=== PATIENT | female | born 1980 | race Caucasian/White ===

== ENCOUNTER 2018-11-20 12:18 | Emergency (ER) | payer OTHER ==
[2018-11-20 13:28] VITALS: BP 119/88
--- NOTE | 2018-11-20 13:32 | UC ---
Hand/Wrist HPI - HPI Summary HPI Summary: 38 y/o female presents to the urgent care c/o Rt wrist pain s/p injury while trying to prevent from falling from a chair. Pt reports she was going to sit and she felt there was no chair behind her and put her Rt hand first. Pt states RT wrist pain is sharp and worse w/ movement 8/10 w/o any radiation. At rest is 4/10. She took Motrin 800mg PO This morning around 1000AM which helped. Pt states pain is worse whe she has to bend her wrist. Pt denies numbness or tingling sensation over the Rt wrist or hand, SOB, chest pain, abdominal pain, N /V/D. - History Of Current Complaint Chief Complaint: UCUpperExtremity Stated Complaint: RIGHT WRIST INJURY Time Seen by Provider: 11/20/18 13:18 Hx Obtained From: Patient ?: No - Hx of Hysterectomy in 2012 Onset/Duration: Sudden Onset, Lasting Days - 1 day, Still Present, Worse Since - this morning Severity Initially: Moderate Severity Currently: Moderate Pain Intensity: 8 - w/ movement Pain Scale Used: 0-10 Numeric Character Of Pain: Sharp Aggravating Factor(s): Movement, Abduction, Twisting, Pulling Alleviating Factor(s): Rest, OTC Meds - Motrin 800mg taken at 1000AM Associated Signs And Symptoms: Positive: Swelling - mild. Negative: Bruising, Fever, Weakness, Numbness/Tingling Related History: Dominant Hand Right - Allergies/Home Medications Allergies/Adverse Reactions: Allergies Allergy/AdvReac Type Severity Reaction Status Date / Time Penicillins Allergy Rash And Verified 11/20/18 13:19 Itching Home Medications: Home Medications Erenumab-Aooe [Aimovig Autoinjector] 1 syr MONTHLY 11/20/18 [History Confirmed 11/20/18] Prochlorperazine SUPP* [Compazine Supp*] 1 supp Q12HR PRN 11/20/18 [History Confirmed 11/20/18] Rizatriptan Benzoate [Rizatriptan] 1 tab BID PRN 11/20/18 [History Confirmed ] carBAMazepine ER TAB(*) [Tegretol Xr TAB(*)] 1 tab BID 11/20/18 [History Confirmed 11/20/18] PMH/Surg Hx/FS Hx/Imm Hx Previously Healthy: Yes Neurological History: Migraine Other Neurological History: Trigeminal Neuralgia Other History Of: Comment Only: Anticoagulant Therapy - factor 5 liden - Surgical History Surgical History: Yes Surgery Procedure, Year, and Place: 3 , gall bladder, batholin gland remove, ovarian cycst removed T&A, TUBES IN EARS, HYSTERECTOMY, LT OVARY REMOVED, CYSTS REMOVED FROM OVARIES, SINUS SURGERY - Family History Known Family History: Positive: None - Pt denies FMHX - Social History Occupation: Employed Full-time Lives: With Family Alcohol Use: None Substance Use Type: None Smoking Status (MU): Former Smoker Type: Joseigaremarie Review of Systems All Other Systems Reviewed And Are Negative: Yes Constitutional: Positive: Negative Skin: Positive: Negative Eyes: Positive: Negative ENT: Positive: Negative Respiratory: Positive: Negative Cardiovascular: Positive: Negative Gastrointestinal: Positive: Negative Genitourinary: Positive: Negative Motor: Positive: Negative Neurovascular: Positive: Negative Musculoskeletal: Positive: Decreased ROM - RT wrist, Other: - Rt wrist pain s/p fall Neurological: Positive: Negative Psychological: Positive: Negative Is Patient Immunocompromised?: No Physical Exam - Summary Physical Exam Summary: Vital Signs Reviewed: Yes General: Well-Appearing, No Pain Distress, Well-Nourished obese female w/o any apparent pain distress Eyes: Positive: Conjunctiva Clear - PERRLA, EOMI ENT: Positive: Normal ENT inspection, Hearing grossly normal, Pharynx normal, TMs normal, Uvula midline Neck: Positive: Supple, Nontender, No Lymphadenopathy Respiratory: Positive: Chest non-tender, Lungs clear, Normal breath sounds, No respiratory distress Cardiovascular: Positive: RRR, No Murmur, Pulses Normal, Brisk Capillary Refill Abdomen Description: Positive: Nontender, No Organomegaly, Soft. Negative: CVA Tenderness (R), CVA Tenderness (L) Bowel Sounds: Positive: Present Musculoskeletal: Positive: Strength Intact, Other: Neurological Exam: Normal Musculoskeletal: Positive: Wrist: the R wrist is without obvious asymmetry or deformity when compared to the L wrist. No surface trauma, open wounds, swelling , or obvious deformity. No overlying erythema or warmth. No bony crepitus. Point tenderness over the thenar eminence and ventral side of wrist. No scaphoid fullness or tenderness to direct palpation or axial load. Decreased ROM due to pain. Motor/sensory function of ulnar, radial, median nerves intact. Ulnar and radial pulses intact. Phalen's and Tinel's test unable to perform due to pain Psychological Exam: Normal Skin Exam: Normal Triage Information Reviewed: Yes Vital Signs: Initial Vital Signs Temp 97.8 F 11/20/18 13:24 Pulse 69 11/20/18 13:24 Resp 16 11/20/18 13:24 BP 119/88 11/20/18 13:24 Pulse Ox 100 11/20/18 13:24 Hand/Wrist Course/Dx - Course Course Of Treatment: 38 y/o female presents to the urgent care c/o Rt wrist pain s/p injury while trying to prevent from falling from a chair. Pt reports she was going to sit and she felt there was no chair behind her and put her Rt hand first. Pt states RT wrist pain is sharp and worse w/ movement 8/10 w/o any radiation. At rest is 4/10. She took Motrin 800mg PO This morning around 1000AM which helped. Pt states pain is worse when she has to bend her wrist. Pt denies numbness or tingling sensation over the Rt wrist or hand, SOB, chest pain, abdominal pain, N /V/D. Hx obtained. RT wrist X-ray ordered. Impression: There was no fracture, dislocation, soft tissue swelling or FB noted as per radiologist. Probably a Rt wrist sprain. Pt s wrist immobilized with thumb spica splint. Advised RICE: Rest, Ice, elevation , advised to continue w/ Motrin PO. There was no neurovascular compromise after splint application placed by nurse; the splint was in good alignment and the pt had good sensation and capillary refill at the time of discharge.Pt advised to f /u w/ Orthopedic Dr Morfin if not improvement of symptoms in 1 week. D/C instructions explained. Pt understood and agreed w/ plan of care. - Differential Dx/Diagnosis Differential Diagnosis/HQI/PQRI: Contusion, Dislocation, Fracture, Sprain, Strain, Tendonitis Provider Diagnosis: Right wrist pain, Right wrist sprain Discharge - Sign-Out/Discharge Documenting (check all that apply): Patient Departure - d/c home All imaging exams completed and their final reports reviewed: Yes - Discharge Plan Condition: Stable Disposition: HOME Patient Education Materials: Wrist Sprain (ED) Referrals: Jakub Sanders MD [Primary Care Provider] - 1 Week Iain Morfin MD [Medical Doctor] - 1 Week Additional Instructions: 1-Please continue taking Motrin PO q6-8hrs prn after meals to alleviate pain and swelling. 2-Please apply ice, keep your thumb immobilized with the splint. Avoid heavy lifting. 3- Please f/u with Orthopedic DR Morfin or your PCP in 1 week is not improvement of symptoms for further evaluation and treatment. - Billing Disposition and Condition Condition: STABLE Disposition: Home
== END 2018-11-20 14:40 | disposition home or self-care (01) ==
LOC: UCCORT 12:18
DX: S63.501A Unspecified sprain of right wrist, initial encounter (principal); X50.0XXA Overexertion from strenuous movement or load, initial encounter; Y92.9 Unspecified place or not applicable; G43.909 Migraine, unspecified, not intractable, without status migrainosus; G50.0 Trigeminal neuralgia; D68.51 Activated protein C resistance; Z79.01 Long term (current) use of anticoagulants; Z88.0 Allergy status to penicillin; Z87.891 Personal history of nicotine dependence
CPT/HCPCS: 99203; G0463